=== PATIENT | male | born 1965 | race Caucasian/White ===

== ENCOUNTER 2016-03-15 15:09 | Inpatient (IN) | payer OTHER ==
[~2016-03-15] VITALS: Ht 167.6 cm; Wt 121.0 kg
[~2016-03-15 15:09] MED LIST: ASPI-378 PO; ATOR10TA52 PO; CARV25TA PO; COLC1TAB3 PO; ENA10T PO; FAM20T PO; FURO20TA PO; METF-316 PO; SPIR50TA2 PO; TRAZ150T79 PO
[2016-03-15 15:40] LABS: Basophils # (auto) 0 uL; Basophils % (auto) 0.1 % (0.0-2.0); Eosinophils # (auto) 0.1 uL; Eosinophils % (auto) 0.8 % (0.0-7.0); Hematocrit 45.9 % (41.0-53.0); Hemoglobin 15.3 g/dL (13.5-17.5); Lymphocytes # (auto) 1.3 uL; Lymphocytes % (auto) 7.4 % (10.0-50.0); Mean Corpuscular Hemoglobin 32.8 pg (28.0-32.0); Mean Corpuscular Hgb Conc. 33.3 g/dL (32.0-36.0); Mean Corpuscular Volume 98.4 fL (80.0-100.0); Mean Platelet Volume 8.5 fL (7.4-10.4); Monocytes # (auto) 0.6 uL; Monocytes % (auto) 3.4 % (0.0-12.0); Neutrophils % (auto) 88.3 % (37.0-80.0); Platelet Count (auto) 393 10^3/uL (140-450); Red Cell Distribution Width 13.1 % (11.6-16.0)
[2016-03-15 15:57] LABS: INR 1.01 (0.9-1.15)
[2016-03-15 16:00] LABS: Albumin 3.7 g/dL (3.4-5.0); BUN/Creatinine Ratio 7.3; Bilirubin, Total 0.8 mg/dL (0.2-1.0); Calcium 8.5 mg/dL (8.5-10.1); Total Protein 7.3 g/dL (6.4-8.2)
[2016-03-15 16:05] LABS: B-Type Natriuretic Peptide 85.9 pg/mL (0-100)
[2016-03-15 16:09] LABS: Temperature: 22.2 C (20.0-25.0)
[2016-03-15] MEDS ORDERED: PROMETHAZINE HCL 25 MG/ML 1ML IV ONE (16:30)
[2016-03-15] MEDS ORDERED: PANTOPRAZOLE SODIUM 40 MG/10 ML VIAL IV ONE (16:30)
[2016-03-15] MEDS ORDERED: IOHEXOL 300 MG/ML 100ML BOTTLE IJ ONE (16:47)
[2016-03-15] MEDS ORDERED: SODIUM CHLORIDE 0.9% 500 ML IV ONE (18:00)
[2016-03-15] MEDS ORDERED: SODIUM CHLORIDE 0.9% 1,000 ML IV SCH (18:06)
[2016-03-15] MEDS ORDERED: cefTRIAXone 1GM/50ML D5W 50 ML IV ONE (18:15)
[2016-03-15] MEDS ORDERED: PROMETHAZINE HCL 25 MG/ML 1ML IV PRN (18:15)
[2016-03-15] MEDS ORDERED: NITROGLYCERIN 0.4 MG SL TAB SL PRN (18:15)
[2016-03-15] MEDS ORDERED: TEMAZEPAM 15 MG CAP PO PRN (18:15)
[2016-03-15] MEDS ORDERED: MORPHINE SULF INJ 2 MG/ML SYRINGE 1ML IV PRN ×2 (18:15)
[2016-03-15] MEDS ORDERED: ACETAMINOPHEN 500 MG TAB PO PRN (18:15)
[2016-03-15] MEDS ORDERED: HYDROcodone-ACET 5/325MG TAB PO PRN (18:15)
[2016-03-15] MEDS ORDERED: DEXTROSE (50%) 50ML SYRG IV PRN (18:15)
[2016-03-15] MEDS ORDERED: LACTULOSE 20Gm/30ML SOLN PO PRN (18:15)
[2016-03-15] MEDS ORDERED: LORazepam 0.5 MG TAB PO PRN (18:15)
[2016-03-15] MEDS ORDERED: COLCHICINE 0.6 MG TAB/CAP PO ONE (18:30)
[2016-03-15] MEDS ORDERED: metroNIDAZOLE 500MG/100ML 100 ML IV ONE (18:30)
[2016-03-15] MEDS ORDERED: ASPirin 81 mg TAB PO ONE (18:30)
[2016-03-15] MEDS: NITROGLYCERIN 0.2MG/HR TOPICAL PATCH TD SCH (19:00)
[2016-03-15] MEDS: ENOXAPARIN SOD 120 MG/0.8 ML SYRINGE SC SCH (19:00)
[2016-03-15] MEDS: ATORVASTATIN 20 MG TAB PO SCH (22:00)
[2016-03-15] MEDS: traZODone HCL 50 MG TAB PO SCH (22:00)
[2016-03-15] MEDS: FAMOTIDINE 20 MG TAB PO SCH (22:00)
[2016-03-15] MEDS ORDERED: METOPROLOL TARTRATE 25 MG TAB PO SCH (22:00)
[2016-03-15] MEDS: CARVEDILOL 12.5 MG TAB PO SCH ×2 (22:00→23:00)
[2016-03-16] MEDS: InsuLIN REG 1unit/0.01ml Soln (100units/ml) SC SCH ×5 (00:27→23:57)
[2016-03-16] MEDS: ACCU-CHEK COMFORT CURVE STRIP VI SCH ×5 (00:27→23:57)
[2016-03-16] MEDS: metroNIDAZOLE 500MG/100ML 100 ML IV SCH ×5 (00:49→23:33)
[2016-03-16] MEDS: ENOXAPARIN SOD 120 MG/0.8 ML SYRINGE SC SCH ×2 (06:04→18:16)
[2016-03-16 06:32] LABS: Basophils # (auto) 0.1 uL; Basophils % (auto) 0.7 % (0.0-2.0); Eosinophils # (auto) 0.2 uL; Eosinophils % (auto) 1.9 % (0.0-7.0); Hematocrit 40.8 % (41.0-53.0); Hemoglobin 13.7 g/dL (13.5-17.5); Lymphocytes # (auto) 2.6 uL; Lymphocytes % (auto) 24.4 % (10.0-50.0); Mean Corpuscular Hgb Conc. 33.5 g/dL (32.0-36.0); Mean Corpuscular Volume 98.5 fL (80.0-100.0); Mean Platelet Volume 8.2 fL (7.4-10.4); Monocytes # (auto) 0.8 uL; Monocytes % (auto) 7.4 % (0.0-12.0); Neutrophils # (auto) 6.9 uL; Neutrophils % (auto) 65.6 % (37.0-80.0); Platelet Count (auto) 348 10^3/uL (140-450); Red Cell Distribution Width 13.1 % (11.6-16.0); White Blood Cell 10.5 10^3/uL (4.4-10.8)
[2016-03-16 06:53] LABS: Albumin 3.2 g/dL (3.4-5.0); BUN/Creatinine Ratio 8.9; Bilirubin, Total 0.8 mg/dL (0.2-1.0); Calcium 8.6 mg/dL (8.5-10.1); Potassium 3.9 mmol/L (3.5-5.1); Total Protein 6.2 g/dL (6.4-8.2)
[2016-03-16] MEDS: ASPirin 81 mg TAB PO SCH (08:53)
[2016-03-16] MEDS: cefTRIAXone 1GM/50ML D5W 50 ML IV SCH (08:53)
[2016-03-16] MEDS: CARVEDILOL 12.5 MG TAB PO SCH ×2 (08:54→23:20)
[2016-03-16] MEDS: COLCHICINE 0.6 MG TAB/CAP PO SCH (08:54)
[2016-03-16] MEDS: ENALAPRIL MALEATE 10 MG TAB PO SCH ×2 (08:54→22:00)
[2016-03-16] MEDS: SPIRONOLACTONE 25 MG TAB PO SCH (08:54)
[2016-03-16] MEDS: FAMOTIDINE 20 MG TAB PO SCH ×2 (08:54→23:20)
[2016-03-16 09:20] VITALS: BP 107/72
[2016-03-16 12:44] VITALS: BP 101/59
[2016-03-16 16:55] VITALS: BP 114/70
[2016-03-16] MEDS: NITROGLYCERIN 0.2MG/HR TOPICAL PATCH TD SCH (18:00)
[2016-03-16] MEDS: SODIUM CHLORIDE 0.9% 1,000 ML IV SCH (18:16)
[2016-03-16 22:00] VITALS: BP 106/60
[2016-03-16] MEDS: traZODone HCL 50 MG TAB PO SCH (23:20)
[2016-03-16] MEDS: ATORVASTATIN 20 MG TAB PO SCH (23:20)
[2016-03-17 05:13] VITALS: BP 110/62
[2016-03-17] MEDS: ACCU-CHEK COMFORT CURVE STRIP VI SCH ×2 (06:00→12:00)
[2016-03-17] MEDS: ENOXAPARIN SOD 120 MG/0.8 ML SYRINGE SC SCH (06:15)
[2016-03-17] MEDS: metroNIDAZOLE 500MG/100ML 100 ML IV SCH ×2 (06:15→12:00)
[2016-03-17] MEDS: InsuLIN REG 1unit/0.01ml Soln (100units/ml) SC SCH ×2 (07:16→12:00)
[2016-03-17] MEDS: SODIUM CHLORIDE 0.9% 1,000 ML IV SCH (08:56)
[2016-03-17] MEDS: ENALAPRIL MALEATE 10 MG TAB PO SCH (08:56)
[2016-03-17] MEDS: SPIRONOLACTONE 25 MG TAB PO SCH (08:57)
[2016-03-17 09:04] VITALS: BP 116/71
[2016-03-17] MEDS: COLCHICINE 0.6 MG TAB/CAP PO SCH (10:05)
[2016-03-17] MEDS: CARVEDILOL 12.5 MG TAB PO SCH (10:05)
[2016-03-17] MEDS: ASPirin 81 mg TAB PO SCH (10:06)
[2016-03-17] MEDS: FAMOTIDINE 20 MG TAB PO SCH (10:06)
[2016-03-17] MEDS: cefTRIAXone 1GM/50ML D5W 50 ML IV SCH (10:07)
[2016-03-17 11:10] VITALS: BP 116/71
[2016-03-17 12:38] VITALS: BP 111/77
== END 2016-03-17 12:59 | disposition home or self-care (01) | DRG 281 ==
LOC: EDBD 15:09 → ER 15:35 → TELE 15:36 → TELE-EAST 03-16 09:48
PROVIDERS: ADMIT Internal Medicine; ATTEND Family Medicine
DX: I21.4 Non-ST elevation (NSTEMI) myocardial infarction (principal); I42.9 Cardiomyopathy, unspecified; E87.1 Hypo-osmolality and hyponatremia; Z68.41 Body mass index [BMI] 40.0-44.9, adult; M54.9 Dorsalgia, unspecified; E11.65 Type 2 diabetes mellitus with hyperglycemia; I25.10 Atherosclerotic heart disease of native coronary artery without angina pectoris; F41.9 Anxiety disorder, unspecified; F32.9 Major depressive disorder, single episode, unspecified; F15.90 Other stimulant use, unspecified, uncomplicated; E66.01 Morbid (severe) obesity due to excess calories; E87.8 Other disorders of electrolyte and fluid balance, not elsewhere classified; I11.0 Hypertensive heart disease with heart failure; R10.32 Left lower quadrant pain; I50.9 Heart failure, unspecified; D72.829 Elevated white blood cell count, unspecified; I25.2 Old myocardial infarction; Z82.49 Family history of ischemic heart disease and other diseases of the circulatory system; Z83.3 Family history of diabetes mellitus; Z95.810 Presence of automatic (implantable) cardiac defibrillator; Z90.49 Acquired absence of other specified parts of digestive tract; Z72.89 Other problems related to lifestyle; Z81.1 Family history of alcohol abuse and dependence; Z82.5 Family history of asthma and other chronic lower respiratory diseases; Z83.42 Family history of familial hypercholesterolemia; Z82.62 Family history of osteoporosis; Z79.82 Long term (current) use of aspirin; Z79.84 Long term (current) use of oral hypoglycemic drugs; Z79.899 Other long term (current) drug therapy; Z91.14 Patient's other noncompliance with medication regimen
CPT/HCPCS: 36415; 71010; 71250; 74177; 80053; 80061; 82378; 82550; 82962; 83036; 83690; 83880; 84484; 85025; 85049; 85379; 85610; 85652; 85730; 86141; 87040; 93005; 94761; 96365; 96367; 96375; C9113; J0696; J1815; J3490

== ENCOUNTER 2016-05-24 21:53 | Inpatient (IN) | payer OTHER ==
[~2016-05-24] VITALS: Ht 167.6 cm; Wt 124.1 kg
[2016-05-24] MEDS ORDERED: ASPirin 81 mg TAB PO ONE (22:15)
[2016-05-24] MEDS ORDERED: ONDANSETRON HCL 4 MG/2 ML VIAL IV ONE (22:15)
[2016-05-24] MEDS ORDERED: HYDROmorphone HCL 2 MG/ML VL IV ONE (22:15)
[2016-05-24 22:20] LABS: Basophils # (auto) 0 uL; Basophils % (auto) 0.1 % (0.0-2.0); Eosinophils # (auto) 0.2 uL; Eosinophils % (auto) 1.5 % (0.0-7.0); Hematocrit 49.5 % (41.0-53.0); Lymphocytes # (auto) 1.1 uL; Lymphocytes % (auto) 10.3 % (10.0-50.0); Mean Corpuscular Hemoglobin 33.1 pg (28.0-32.0); Mean Corpuscular Hgb Conc. 34.2 g/dL (32.0-36.0); Mean Corpuscular Volume 96.7 fL (80.0-100.0); Mean Platelet Volume 8.6 fL (7.4-10.4); Monocytes # (auto) 0.4 uL; Monocytes % (auto) 3.5 % (0.0-12.0); Neutrophils # (auto) 9.3 uL; Neutrophils % (auto) 84.6 % (37.0-80.0); Platelet Count (auto) 367 10^3/uL (140-450); Red Cell Distribution Width 13.1 % (11.6-16.0)
[2016-05-24 22:37] LABS: INR 1.01 (0.9-1.15); Prothrombin Time 10.4 sec (9.37-12.3)
[2016-05-24 22:38] LABS: Albumin 4.3 g/dL (3.4-5.0); BUN/Creatinine Ratio 13.2; Calcium 9.8 mg/dL (8.5-10.1); Potassium 4.3 mmol/L (3.5-5.1)
[2016-05-24 22:54] LABS: Bilirubin, Total 0.8 mg/dL (0.2-1.0); Total Protein 8.3 g/dL (6.4-8.2)
[2016-05-24] MEDS ORDERED: ENOXAPARIN SOD 100 MG/1 ML SYRINGE SC ONE (23:00)
[2016-05-24] MEDS ORDERED: ENOXAPARIN SOD 30 MG/0.3 ML SYRINGE IV ONE (23:00)
[2016-05-24 23:05] LABS: B-Type Natriuretic Peptide 292.53 pg/mL (0-100)
[2016-05-25] MEDS ORDERED: DEXTROSE (50%) 50ML SYRG IV PRN (03:45)
[2016-05-25] MEDS ORDERED: CLOPIDOGREL 300 MG TAB PO ONE (03:45)
[2016-05-25] MEDS ORDERED: MORPHINE SULF INJ 2 MG/ML SYRINGE 1ML IV PRN (03:45)
[2016-05-25] MEDS ORDERED: ACETAMINOPHEN 325 MG TAB PO PRN (03:45)
[2016-05-25] MEDS ORDERED: NITROGLYCERIN 0.4 MG SL TAB SL PRN (03:45)
[2016-05-25] MEDS ORDERED: HYDROcodone-ACET 5/325MG TAB PO PRN (03:45)
[2016-05-25] MEDS ORDERED: ATORVASTATIN 20 MG TAB PO ONE (03:45)
[2016-05-25] MEDS ORDERED: MORPHINE SULF INJ 2 MG/ML SYRINGE 1ML ONE (03:48)
[2016-05-25] MEDS ORDERED: ONDANSETRON HCL 4 MG/2 ML VIAL ONE (03:48)
[2016-05-25] MEDS: ONDANSETRON HCL 4 MG/2 ML VIAL IV PRN ×3 (04:12→10:24)
[2016-05-25] MEDS: MORPHINE SULF INJ 2 MG/ML SYRINGE 1ML IV PRN ×3 (04:13→20:10)
[2016-05-25 04:30] LABS: Urine RBC None Seen /hpf (0 - 3)
[2016-05-25 04:49] LABS: Urine Bilirubin Negative (Negative); Urine Blood Negative /uL (Negative); Urine Color Yellow (Yellow); Urine Nitrite Negative (Negative); Urine Urobilinogen Normal (Negative); Urine pH 7.5 (5.0-8.0)
[2016-05-25 04:50] LABS: Urine Glucose 4+ mg/dL (Normal); Urine Ketone 1+ (Negative)
[2016-05-25] MEDS: ACCU-CHEK COMFORT CURVE STRIP VI SCH ×4 (06:13→23:46)
[2016-05-25] MEDS: InsuLIN REG 1unit/0.01ml Soln (100units/ml) SC SCH ×4 (06:17→23:47)
[2016-05-25] MEDS ORDERED: ENOXAPARIN SOD 120 MG/0.8 ML SYRINGE SC SCH (10:00)
[2016-05-25] MEDS ORDERED: ENOXAPARIN SOD 40 MG/0.4 ML SYRINGE SC SCH (10:00)
[2016-05-25] MEDS ORDERED: ASPirin 81 mg TAB PO SCH (10:00)
[2016-05-25] MEDS: FUROSEMIDE 40 MG TAB PO SCH (10:20)
[2016-05-25] MEDS: COLCHICINE 0.6 MG CAP PO SCH (10:20)
[2016-05-25] MEDS: ENALAPRIL MALEATE 10 MG TAB PO SCH ×2 (10:20→21:44)
[2016-05-25] MEDS: CARVEDILOL 12.5 MG TAB PO SCH ×2 (10:20→21:45)
[2016-05-25] MEDS: FAMOTIDINE 20 MG TAB PO SCH ×2 (10:24→21:44)
[2016-05-25] MEDS: SPIRONOLACTONE 25 MG TAB PO SCH (13:47)
[2016-05-25] MEDS: ENOXAPARIN SOD 120 MG/0.8 ML SYRINGE SC SCH (21:44)
[2016-05-25] MEDS ORDERED: ATORVASTATIN 20 MG TAB PO SCH ×2 (22:00)
[2016-05-26 04:19] LABS: Basophils # (auto) 0 uL; Basophils % (auto) 0.5 % (0.0-2.0); Eosinophils # (auto) 0.5 uL; Eosinophils % (auto) 4.2 % (0.0-7.0); Hematocrit 45.9 % (41.0-53.0); Hemoglobin 15.6 g/dL (13.5-17.5); Lymphocytes # (auto) 1.8 uL; Lymphocytes % (auto) 17.1 % (10.0-50.0); Mean Corpuscular Hemoglobin 33.4 pg (28.0-32.0); Mean Corpuscular Volume 98.3 fL (80.0-100.0); Mean Platelet Volume 8.6 fL (7.4-10.4); Monocytes # (auto) 0.7 uL; Monocytes % (auto) 6.4 % (0.0-12.0); Neutrophils # (auto) 7.7 uL; Neutrophils % (auto) 71.8 % (37.0-80.0); Platelet Count (auto) 362 10^3/uL (140-450); Red Cell Distribution Width 13.3 % (11.6-16.0); White Blood Cell 10.7 10^3/uL (4.4-10.8)
[2016-05-26 04:50] LABS: Albumin 3.6 g/dL (3.4-5.0); BUN/Creatinine Ratio 11.9; Bilirubin, Total 0.9 mg/dL (0.2-1.0); Calcium 9.1 mg/dL (8.5-10.1); Magnesium 2.3 mg/dL (1.6-2.6); Potassium 4.4 mmol/L (3.5-5.1); Total Protein 7.2 g/dL (6.4-8.2)
[2016-05-26] MEDS: ACCU-CHEK COMFORT CURVE STRIP VI SCH ×3 (05:58→18:26)
[2016-05-26] MEDS: InsuLIN REG 1unit/0.01ml Soln (100units/ml) SC SCH ×3 (06:00→17:59)
[2016-05-26] MEDS ORDERED: ALBUMIN 5% 250 ML IV ONE (08:00)
[2016-05-26] MEDS: CARVEDILOL 12.5 MG TAB PO SCH ×2 (09:53→22:00)
[2016-05-26] MEDS: SPIRONOLACTONE 25 MG TAB PO SCH (09:53)
[2016-05-26] MEDS: ENALAPRIL MALEATE 10 MG TAB PO SCH (09:54)
[2016-05-26] MEDS: FUROSEMIDE 40 MG TAB PO SCH (09:54)
[2016-05-26] MEDS ORDERED: CLOPIDOGREL BISULFATE 75 MG TAB PO SCH (10:00)
[2016-05-26] MEDS: ASPirin 81 mg TAB PO SCH (10:03)
[2016-05-26] MEDS: FAMOTIDINE 20 MG TAB PO SCH ×2 (10:03→22:25)
[2016-05-26] MEDS: ENOXAPARIN SOD 120 MG/0.8 ML SYRINGE SC SCH ×2 (10:03→22:25)
[2016-05-26] MEDS: COLCHICINE 0.6 MG CAP PO SCH (10:03)
[2016-05-26] MEDS: ONDANSETRON HCL 4 MG/2 ML VIAL IV PRN (11:01)
[2016-05-26] MEDS ORDERED: IOHEXOL 300 MG/ML 100ML BOTTLE IJ ONE (14:45)
[2016-05-26] MEDS: ATORVASTATIN 20 MG TAB PO SCH (22:25)
[2016-05-27 04:36] LABS: BUN/Creatinine Ratio 11.8; Calcium 8.9 mg/dL (8.5-10.1); Potassium 4.6 mmol/L (3.5-5.1)
[2016-05-27] MEDS: ACCU-CHEK COMFORT CURVE STRIP VI SCH ×5 (05:42→23:19)
[2016-05-27] MEDS: InsuLIN REG 1unit/0.01ml Soln (100units/ml) SC SCH ×4 (05:57→17:54)
[2016-05-27] MEDS: CARVEDILOL 12.5 MG TAB PO SCH ×2 (10:00→21:35)
[2016-05-27] MEDS: ENALAPRIL MALEATE 10 MG TAB PO SCH (10:00)
[2016-05-27] MEDS: FUROSEMIDE 40 MG TAB PO SCH (10:00)
[2016-05-27] MEDS: SPIRONOLACTONE 25 MG TAB PO SCH (10:00)
[2016-05-27] MEDS: ENOXAPARIN SOD 40 MG/0.4 ML SYRINGE SC SCH (11:27)
[2016-05-27] MEDS: ASPirin 81 mg TAB PO SCH (11:28)
[2016-05-27] MEDS: FAMOTIDINE 20 MG TAB PO SCH ×2 (11:28→21:34)
[2016-05-27] MEDS: COLCHICINE 0.6 MG CAP PO SCH (11:29)
[2016-05-27 13:01] VITALS: BP 82/47
[2016-05-27 17:00] VITALS: BP 129/82
[2016-05-27] MEDS: ceFAZolin 1GM/50ML D5W 50 ML IV SCH ×2 (17:54→23:19)
[2016-05-27] MEDS: ATORVASTATIN 20 MG TAB PO SCH (21:34)
[2016-05-27 22:00] VITALS: BP 111/79
[2016-05-28] VITALS (7 sets, daily range): BP systolic 82–123; BP diastolic 59–67
[2016-05-28] MEDS ORDERED: TEMAZEPAM 15 MG CAP PO ONE (00:45)
[2016-05-28] MEDS: ceFAZolin 1GM/50ML D5W 50 ML IV SCH ×3 (05:24→17:39)
[2016-05-28] MEDS: ACCU-CHEK COMFORT CURVE STRIP VI SCH ×3 (05:25→18:00)
[2016-05-28] MEDS: InsuLIN REG 1unit/0.01ml Soln (100units/ml) SC SCH ×4 (05:39→18:00)
[2016-05-28] MEDS: SPIRONOLACTONE 25 MG TAB PO SCH (10:38)
[2016-05-28] MEDS: ENOXAPARIN SOD 40 MG/0.4 ML SYRINGE SC SCH (10:38)
[2016-05-28] MEDS: ASPirin 81 mg TAB PO SCH (10:59)
[2016-05-28] MEDS: FAMOTIDINE 20 MG TAB PO SCH ×2 (10:59→21:42)
[2016-05-28] MEDS: FUROSEMIDE 40 MG TAB PO SCH (11:00)
[2016-05-28] MEDS: ENALAPRIL MALEATE 10 MG TAB PO SCH (11:00)
[2016-05-28] MEDS: COLCHICINE 0.6 MG CAP PO SCH (11:00)
[2016-05-28] MEDS: CARVEDILOL 12.5 MG TAB PO SCH ×2 (11:01→21:42)
[2016-05-28] MEDS: ATORVASTATIN 20 MG TAB PO SCH (21:41)
[2016-05-29] MEDS: ceFAZolin 1GM/50ML D5W 50 ML IV SCH ×5 (00:45→23:28)
[2016-05-29] MEDS: InsuLIN REG 1unit/0.01ml Soln (100units/ml) SC SCH ×5 (02:50→23:50)
[2016-05-29 05:00] VITALS: BP 91/68
[2016-05-29 05:45] LABS: Basophils # (auto) 0 uL; Basophils % (auto) 0.5 % (0.0-2.0); Eosinophils # (auto) 0.5 uL; Hematocrit 45.1 % (41.0-53.0); Hemoglobin 15.5 g/dL (13.5-17.5); Lymphocytes # (auto) 2.4 uL; Lymphocytes % (auto) 24.3 % (10.0-50.0); Mean Corpuscular Hemoglobin 33.4 pg (28.0-32.0); Mean Corpuscular Hgb Conc. 34.3 g/dL (32.0-36.0); Mean Corpuscular Volume 97.5 fL (80.0-100.0); Mean Platelet Volume 8.9 fL (7.4-10.4); Monocytes % (auto) 9.8 % (0.0-12.0); Neutrophils % (auto) 60.4 % (37.0-80.0); Platelet Count (auto) 328 10^3/uL (140-450); Red Cell Distribution Width 12.7 % (11.6-16.0); White Blood Cell 9.9 10^3/uL (4.4-10.8)
[2016-05-29] MEDS: ACCU-CHEK COMFORT CURVE STRIP VI SCH ×5 (06:00→23:45)
[2016-05-29 06:25] LABS: BUN/Creatinine Ratio 11.1; Magnesium 2.1 mg/dL (1.6-2.6); Potassium 3.9 mmol/L (3.5-5.1)
[2016-05-29 08:00] VITALS: BP 99/59
[2016-05-29] MEDS: FUROSEMIDE 40 MG TAB PO SCH (10:00)
[2016-05-29] MEDS: ENALAPRIL MALEATE 10 MG TAB PO SCH (10:00)
[2016-05-29] MEDS: CARVEDILOL 12.5 MG TAB PO SCH ×2 (10:00→21:53)
[2016-05-29] MEDS: SPIRONOLACTONE 25 MG TAB PO SCH (10:00)
[2016-05-29] MEDS: ASPirin 81 mg TAB PO SCH (10:36)
[2016-05-29] MEDS: COLCHICINE 0.6 MG CAP PO SCH (10:36)
[2016-05-29] MEDS: FAMOTIDINE 20 MG TAB PO SCH ×2 (10:36→21:51)
[2016-05-29] MEDS: ENOXAPARIN SOD 40 MG/0.4 ML SYRINGE SC SCH (10:36)
[2016-05-29 12:00] VITALS: BP 97/66
[2016-05-29 17:00] VITALS: BP 111/71
[2016-05-29] MEDS ORDERED: LACTULOSE 20Gm/30ML SOLN PO ONE (17:15)
[2016-05-29] MEDS: ATORVASTATIN 20 MG TAB PO SCH (21:52)
[2016-05-29 22:00] VITALS: BP 102/59
[2016-05-30 05:00] VITALS: BP 99/63
[2016-05-30] MEDS: InsuLIN REG 1unit/0.01ml Soln (100units/ml) SC SCH ×2 (05:50→12:25)
[2016-05-30] MEDS: ceFAZolin 1GM/50ML D5W 50 ML IV SCH ×2 (05:50→12:24)
[2016-05-30] MEDS: ACCU-CHEK COMFORT CURVE STRIP VI SCH ×2 (05:50→12:25)
[2016-05-30 09:00] VITALS: BP 121/78
[2016-05-30] MEDS: CARVEDILOL 12.5 MG TAB PO SCH (10:00)
[2016-05-30] MEDS ORDERED: FUROSEMIDE 20 MG TAB PO SCH (10:00)
[2016-05-30] MEDS: ENALAPRIL MALEATE 10 MG TAB PO SCH (10:00)
[2016-05-30] MEDS ORDERED: SPIRONOLACTONE 25 MG TAB PO SCH (10:00)
[2016-05-30] MEDS: COLCHICINE 0.6 MG CAP PO SCH (10:14)
[2016-05-30] MEDS: ENOXAPARIN SOD 40 MG/0.4 ML SYRINGE SC SCH (10:14)
[2016-05-30] MEDS: FAMOTIDINE 20 MG TAB PO SCH (10:14)
[2016-05-30] MEDS: ASPirin 81 mg TAB PO SCH (10:15)
[2016-05-30 12:45] VITALS: BP 113/69
[2016-05-30 16:30] VITALS: BP 116/70
[2016-05-30 17:06] VITALS: BP 116/70
== END 2016-05-30 16:00 | disposition home or self-care (01) | DRG 280 ==
LOC: ER 21:53 → TELE 21:54 → TELE-WESTW 05-27 10:25
PROVIDERS: ADMIT Nurse Practitioner; ATTEND Internal Medicine
DX: I21.4 Non-ST elevation (NSTEMI) myocardial infarction (principal); J96.01 Acute respiratory failure with hypoxia; I42.9 Cardiomyopathy, unspecified; Z68.41 Body mass index [BMI] 40.0-44.9, adult; Z71.6 Tobacco abuse counseling; I50.9 Heart failure, unspecified; I25.10 Atherosclerotic heart disease of native coronary artery without angina pectoris; F32.9 Major depressive disorder, single episode, unspecified; I11.0 Hypertensive heart disease with heart failure; F15.90 Other stimulant use, unspecified, uncomplicated; E66.01 Morbid (severe) obesity due to excess calories; F41.9 Anxiety disorder, unspecified; F17.200 Nicotine dependence, unspecified, uncomplicated; E11.65 Type 2 diabetes mellitus with hyperglycemia; E78.5 Hyperlipidemia, unspecified; Z53.20 Procedure and treatment not carried out because of patient's decision for unspecified reasons; I25.2 Old myocardial infarction; Z95.810 Presence of automatic (implantable) cardiac defibrillator; Z82.5 Family history of asthma and other chronic lower respiratory diseases; Z90.49 Acquired absence of other specified parts of digestive tract; Z82.49 Family history of ischemic heart disease and other diseases of the circulatory system; Z81.1 Family history of alcohol abuse and dependence; Z83.3 Family history of diabetes mellitus; Z82.62 Family history of osteoporosis; Z84.89 Family history of other specified conditions; Z91.14 Patient's other noncompliance with medication regimen; Z91.19 Patient's noncompliance with other medical treatment and regimen
CPT/HCPCS: 36415; 71010; 74177; 80048; 80053; 80061; 81001; 82150; 82962; 83036; 83690; 83735; 83880; 84443; 84484; 85025; 85379; 85610; 85730; 87040; 87081; 93005; 96372; 96374; 96375; 99291; G0434; J0690; J1815; J2405

== ENCOUNTER → 2016-07-30 | Outpatient (CLI) | payer MEDICARE, MEDICAID ==
[~2016-07-30] MED LIST changes: -COLC1TAB3 PO
[2016-07-30 14:11] LABS: Urine RBC None Seen /hpf (0 - 3)
[2016-07-30 14:27] LABS: Basophils # (auto) 0 uL; Basophils % (auto) 0.4 % (0.0-2.0); Eosinophils # (auto) 0.3 uL; Hematocrit 45.7 % (41.0-53.0); Hemoglobin 15.6 g/dL (13.5-17.5); Lymphocytes # (auto) 1.7 uL; Lymphocytes % (auto) 20.1 % (10.0-50.0); Mean Corpuscular Hemoglobin 33.2 pg (28.0-32.0); Mean Corpuscular Hgb Conc. 34.2 g/dL (32.0-36.0); Mean Corpuscular Volume 97.2 fL (80.0-100.0); Mean Platelet Volume 8.7 fL (7.4-10.4); Monocytes # (auto) 0.6 uL; Monocytes % (auto) 7.8 % (0.0-12.0); Neutrophils # (auto) 5.6 uL; Neutrophils % (auto) 67.7 % (37.0-80.0); Platelet Count (auto) 316 10^3/uL (140-450); Red Cell Distribution Width 13.1 % (11.6-16.0); White Blood Cell 8.3 10^3/uL (4.4-10.8)
[2016-07-30 15:00] LABS: Urine Bilirubin Negative (Negative); Urine Blood Negative /uL (Negative); Urine Glucose Normal (Normal); Urine Ketone Negative (Negative); Urine Nitrite Negative (Negative); Urine Urobilinogen Normal (Negative)
[2016-07-30 15:04] LABS: Urine Color Straw (Yellow)
[2016-07-30 15:12] LABS: Potassium 4.3 mmol/L (3.5-5.1)
[2016-07-30 15:13] LABS: Bilirubin, Total 0.6 mg/dL (0.2-1.0); Calcium 8.9 mg/dL (8.5-10.1); Total Protein 6.9 g/dL (6.4-8.2)
== END | disposition home or self-care (01) ==
LOC: LAB 13:48
DX: E11.21 Type 2 diabetes mellitus with diabetic nephropathy (principal); I50.20 Unspecified systolic (congestive) heart failure
CPT/HCPCS: 36415; 80053; 80061; 81001; 82043; 83036; 84443; 85025

== ENCOUNTER → 2016-11-05 | Outpatient (CLI) | payer MEDICARE, MEDICAID ==
[~2016-11-05] MED LIST changes: -METF-316 PO; +METF-372 PO
[2016-11-05 16:11] LABS: Urine RBC None Seen /hpf (0 - 3)
[2016-11-05 17:05] LABS: Albumin 3.9 g/dL (3.4-5.0); BUN/Creatinine Ratio 10.7; Calcium 9.2 mg/dL (8.5-10.1)
[2016-11-05 17:07] LABS: Bilirubin, Total 0.4 mg/dL (0.2-1.0); Total Protein 7.5 g/dL (6.4-8.2)
[2016-11-05 17:31] LABS: Urine Bilirubin Negative (Negative); Urine Blood Negative /uL (Negative); Urine Color Yellow (Yellow); Urine Glucose Normal (Normal); Urine Hyaline Cast FEW /lpf (0 - 2); Urine Ketone Negative (Negative); Urine Mucus FEW (None Seen); Urine Nitrite Negative (Negative); Urine Urobilinogen Normal (Negative)
== END | disposition home or self-care (01) ==
LOC: LAB 15:54
PROVIDERS: ATTEND Internal Medicine
DX: N39.0 Urinary tract infection, site not specified (principal); E03.9 Hypothyroidism, unspecified; E11.9 Type 2 diabetes mellitus without complications; I11.0 Hypertensive heart disease with heart failure; I50.9 Heart failure, unspecified; I25.10 Atherosclerotic heart disease of native coronary artery without angina pectoris
CPT/HCPCS: 36415; 80053; 81001; 83036; 84443

== ENCOUNTER 2017-05-04 05:54 | Emergency (ER) | payer MEDICARE, MEDICAID ==
[~2017-05-04] VITALS: Ht 167.6 cm; Wt 127.0 kg
[2017-05-04] MEDS ORDERED: ONDANSETRON HCL 4 MG/2 ML VIAL IV ONE (07:30)
[2017-05-04] MEDS ORDERED: MORPHINE SULFATE 4 MG/ML SYR/VIAL IV ONE (07:30)
[2017-05-04 07:57] LABS: Basophils # (auto) 0.1 uL; Basophils % (auto) 0.7 % (0.0-2.0); Eosinophils # (auto) 0.3 uL; Hemoglobin 15.7 g/dL (13.5-17.5); Monocytes # (auto) 1.1 uL; Neutrophils # (auto) 8.8 uL
[2017-05-04 07:58] LABS: Eosinophils % (auto) 2.9 % (0.0-7.0); Hematocrit 45.9 % (41.0-53.0); Lymphocytes # (auto) 1.6 uL; Lymphocytes % (auto) 13.2 % (10.0-50.0); Mean Corpuscular Hemoglobin 34.3 pg (28.0-32.0); Mean Corpuscular Hgb Conc. 34.2 g/dL (32.0-36.0); Mean Corpuscular Volume 100.4 fL (80.0-100.0); Monocytes % (auto) 9.2 % (0.0-12.0); Nucleated Red Blood Cells % 0.1 %; Platelet Count (auto) 300 10^3/uL (140-450); Red Blood Cells 4.58 10^6/uL (4.5-5.90); Red Cell Distribution Width 13.4 % (11.8-14.3); White Blood Cell 11.8 10^3/uL (4.4-10.8)
[2017-05-04 08:00] VITALS: BP 122/78
[2017-05-04 08:05] LABS: Albumin 3.7 g/dL (3.4-5.0); BUN/Creatinine Ratio 10.1; Potassium 3.9 mmol/L (3.5-5.1)
[2017-05-04 08:08] LABS: Bilirubin, Total 0.7 mg/dL (0.2-1.0); Total Protein 7.3 g/dL (6.4-8.2)
== END 2017-05-04 09:37 | disposition home or self-care (01) ==
LOC: EDBD 05:54 → ER 06:04
DX: S29.011A Strain of muscle and tendon of front wall of thorax, initial encounter (principal); I20.9 Angina pectoris, unspecified; I10 Essential (primary) hypertension; E11.9 Type 2 diabetes mellitus without complications; Z86.73 Personal history of transient ischemic attack (TIA), and cerebral infarction without residual deficits; Z90.89 Acquired absence of other organs; Z95.0 Presence of cardiac pacemaker; Z79.899 Other long term (current) drug therapy; X58.XXXA Exposure to other specified factors, initial encounter; Y93.89 Activity, other specified; Y92.89 Other specified places as the place of occurrence of the external cause; Y99.8 Other external cause status
CPT/HCPCS: 36415; 71045; 71250; 80053; 85025; 96374; 96375; 99285; J2270; J2405; 93005